=== PATIENT | male | born 1990 | race African-American/Black ===

== ENCOUNTER 2018-01-09 20:23 | Emergency (ER) | payer SELFPAY ==
[2018-01-09] MEDS ORDERED: IBUPROFEN 800 MG TABLET PO ONE (21:42)
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
--- NOTE | 2018-01-09 22:28 | RADIOLOGY REPORT (SQ) ---
EXAM DESCRIPTION: HAND RIGHT 3 VIEWS COMPLETED DATE/TIME: 01/09/2018 10:13 pm REASON FOR STUDY: swelling, pain COMPARISON: None. EXAM PARAMETERS: NUMBER OF VIEWS: Three views. TECHNIQUE: AP, lateral and oblique radiographic images acquired of the right hand. LIMITATIONS: None. FINDINGS: MINERALIZATION: Normal. BONES: No acute fracture or dislocation. No worrisome bone lesions. JOINTS: No effusions. SOFT TISSUES: No soft tissue swelling. No foreign body. OTHER: No other significant finding. IMPRESSION: NEGATIVE STUDY OF THE RIGHT HAND. NO RADIOGRAPHIC EVIDENCE OF ACUTE INJURY. TECHNICAL DOCUMENTATION: JOB ID: [id number] [employer]- All Rights Reserved Reading location - IP/workstation name: [email or web address]
[2018-01-09 22:53] VITALS: BP 147/96
== END 2018-01-09 22:53 | disposition home or self-care (01) ==
LOC: ER 20:23
DX: S69.91XA Unspecified injury of right wrist, hand and finger(s), initial encounter (principal); M79.641 Pain in right hand; M79.644 Pain in right finger(s); W50.0XXA Accidental hit or strike by another person, initial encounter; Y93.83 Activity, rough housing and horseplay; J45.909 Unspecified asthma, uncomplicated
CPT/HCPCS: 99283

== ENCOUNTER 2018-04-02 21:44 | Emergency (ER) | payer SELFPAY ==
[2018-04-02 21:59] VITALS: BP 152/77
== END 2018-04-03 04:14 | disposition left against medical advice (07) ==
LOC: ER 21:44
DX: Z53.21 Procedure and treatment not carried out due to patient leaving prior to being seen by health care provider (principal)